=== PATIENT | male | born 1985 | race Asian ===

== ENCOUNTER 2021-02-26 03:09 | Emergency (ER) | payer OTHER ==
[~2021-02-26] VITALS: Ht 165.1 cm; Wt 106.1 kg
[2021-02-26] MEDS ORDERED: ENTRESTO 97-1031 TAB PO (03:52)
[2021-02-26] MEDS ORDERED: ONE A DAY MENS1 CHW PO (03:53)
[2021-02-26] MEDS ORDERED: LIPITOR80 MG PO (03:54)
[2021-02-26] MEDS ORDERED: CARV25TA PO (03:55)
[2021-02-26] MEDS ORDERED: FURO40TA93 PO (03:55)
[2021-02-26] MEDS ORDERED: GLIP10TA55 PO (03:57)
[2021-02-26] MEDS ORDERED: POT CHLORIDE10 MEQ PO (03:58)
[2021-02-26] MEDS ORDERED: SPIRONOLACT25 MG PO (03:58)
[2021-02-26] MEDS ORDERED: D35000 UNIT PO (03:59)
[2021-02-26] MEDS ORDERED: B12 FAST DIS5000 MCG PO (04:00)
[2021-02-26 04:18] LABS: PLATELET COUNT 316 K/uL (142-355)
[2021-02-26 04:24] LABS: POTASSIUM 3.7 mmol/L (3.6-5.2)
[2021-02-26 06:40] VITALS: BP 115/72; TEMP 97.7
== END 2021-02-26 06:40 | disposition home or self-care (01) ==
LOC: ED 03:09
PROVIDERS: Hospitalist
DX: R19.7 Diarrhea, unspecified (principal); K52.89 Other specified noninfective gastroenteritis and colitis; Z20.822 Contact with and (suspected) exposure to COVID-19
CPT/HCPCS: 36415; 80053; 80320; 81000; 83690; 85027; 87635; 96365; 96366; 99284; J1956; U0003

== ENCOUNTER 2021-11-29 21:11 | Emergency (ER) | payer OTHER ==
[~2021-11-29] VITALS: Ht 165.1 cm; Wt 104.3 kg
[~2021-11-29 21:11] MED LIST: B12 FAST DIS5000 MCG PO; CARV25TA PO; D35000 UNIT PO; ENTRESTO 97-1031 TAB PO; FURO40TA93 PO; GLIP10TA55 PO; LIPITOR80 MG PO; ONE A DAY MENS1 CHW PO; POT CHLORIDE10 MEQ PO; SPIRONOLACT25 MG PO
[2021-11-29 22:07] LABS: POTASSIUM 3.3 mmol/L (3.6-5.2)
[2021-11-29 22:10] LABS: PLATELET COUNT 325 K/uL (142-355)
[2021-11-30 00:26] VITALS: BP 133/88; TEMP 98.3
== END 2021-11-30 00:26 | disposition home or self-care (01) ==
LOC: ED 21:11
PROVIDERS: Emergency Medicine
DX: R07.89 Other chest pain (principal); E86.0 Dehydration
CPT/HCPCS: 36415; 80053; 82550; 83880; 84443; 84484; 85027; 93005; 96360; 96374; 96375; 99284; J2270; J2405